=== PATIENT | female | born 1980 | race African-American/Black ===

== ENCOUNTER 2018-05-02 10:13 | Inpatient (IN) | payer BC, OTHER ==
[~2018-05-02] VITALS: Ht 165.1 cm; Wt 69.9 kg
--- NOTE | ~2018-05-02 | HC ---
[facility] [place] [address] CONSULTATION Name: MARE CRUZ Room #: 457-P ADM IN M.R.#: [id number] Admission: 05/02/18 Attend Phys: Nimo Olmos Discharge: Date of : 82 Report #: [id number] THIS REPORT FOR: //name// CC: LAVINIA physician/PCP Nimo Olmos DATE OF SERVICE: 05/02/2018 HISTORY OF PRESENT ILLNESS: This is a 38-year-old female patient who was admitted with somewhat of an unusual symptom. I talked to the patient to get the history. I talked to Dr. Perez, the Emergency Room physician, and talked to Dr. Olmos, the admitting physician. At this time, the patient gives history that she started having some tingling and numbness in the right upper extremity then it started involving her face and the tongue. Her speech became slurred. She believes she had some motor deficit that time. The symptoms subsequently resolved. It was not followed by any headache. She said she has a history of migraine, but the history I get is pretty unusual. She indicated that 10 years ago, she was having migraine headache. They were happening daily. She went to a neurologist and he did not think it was neurological. She went for allergy shots and took allergy shots for some time and that took care of her migraine. She never had any focal neurological symptoms. REVIEW OF SYSTEMS: Indicates that the patient is on control pills. She has been on control pills for a long time. She indicates she has a history of migraine. She indicates she saw her physician a few months ago and she was never diagnosed with hypertensive. Her blood pressure is running low, more than 140 here; it was a little higher earlier. She is not a known hypertensive. I carried out 14-point review of system in this patient. Rest of the 14-point review of system was mostly noncontributory. PAST MEDICAL HISTORY: Negative for TIA-like symptoms. FAMILY HISTORY: Unremarkable. PHYSICAL EXAMINATION: NEUROLOGIC: Indicates she is alert, responsive, oriented. Her speech, concentration, fund of knowledge, memory is at her baseline. Cranial nerve examination 2-12 looks unremarkable. She has unremarkable neuromuscular examination for any focality. No meningeal signs. There is no carotid bruit. CARDIAC: Appears unremarkable. RESPIRATORY: No respiratory difficulty, no rhonchi. VITAL SIGNS: Blood pressure 143/97, respirations 14, pulse is 68. LABORATORY DATA: Indicates a normal white count at 7.3. test is [facility] [address] [place] [address] CONSULTATION Name: MARE CRUZ Room #: 457-P [facility] IN .R.#: [id number] Admission: 05/02/18 Attend Phys: Nimo Olmos Discharge: Date of : 82 Report #: [id number]. LDL is 91, but HDL is 64. She had a CT angio, MRI of the brain and MRA. I had talked to the Emergency Room physician and asked him to exclude the and if that is excluded, they can do the CT angiogram. They did do a CT angiogram and that does not show any acute abnormality. IMPRESSION: Somewhat unstructured symptoms and unusual history as summarized above. 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 It may be transient ischemic attack, but the symptoms are pretty poorly defined. RECOMMENDATIONS: 1. Echocardiogram. 2. She really needs to talk to her OB about the control pills if she is having TIA-like symptoms and has a history of migraine. The risk of stroke is higher in this population. 3. Her blood pressure can be monitored and if it continued to stay high, then she needs to take measures to lower it. Thank you very much for this referral and all of it was discussed with the patient in great detail and we will follow the above plan. By: 1629 [id number] Cortes Angelo MD /nt
[2018-05-02 10:23] VITALS: BP 153/96
[2018-05-02] MEDS ORDERED: JUNEL FE 1.5-31 EACH PO (10:30)
[2018-05-02 10:51] LABS: ABSOLUTE NEUTROPHILS 4.1 thou/uL (1.4-8.2); BASOPHILS 0.4 % (0.0-2.0); EOSINOPHILS 0.9 % (0.0-3.0); LYMPHOCYTES 34.6 % (24.0-44.0); MCH 30.2 pg (26.0-34.0); MCHC 33.4 g/dL (28.0-37.0); MCV 90.2 fL (80.0-100.0); MONOCYTES 8.2 % (1.0-8.0); PLATELET COUNT 257 thou/uL (150-400); POLYS 55.9 % (36.0-66.0); RBC 4.33 mil/uL (4.20-5.00); RDW 14.9 % (10.5-14.5); WBC 7.3 thou/uL (4.0-11.0)
[2018-05-02 10:58] LABS: CALCIUM 9.5 mg/dL (8.5-10.1); CREATININE 0.9 mg/dL (0.6-1.0); POTASSIUM 3.6 mmol/L (3.5-5.1)
[2018-05-02 11:04] LABS: ALBUMIN 4.1 g/dL (3.4-5.0); TOTAL BILIRUBIN 0.2 mg/dL (<0.1-1.0); TOTAL PROTEIN 8.4 g/dL (6.4-8.2)
[2018-05-02 14:22] LABS: CHOLESTEROL 166 mg/dL (<200); HDL CHOLESTEROL 64 mg/dL (>40); LDL CHOLESTEROL 91 mg/dL (<100); TC:HDL 2.6 Ratio (Not establshd); TRIGLYCERIDE 56 mg/dL (<150); VLDL 11 mg/dL (<40)
[2018-05-02 14:58] VITALS: BP 149/86
[2018-05-02] MEDS ORDERED: ZYRTEC10 M5 PO (15:18)
[2018-05-02] MEDS ORDERED: WOMEN'S DAILY1 EAC2 PO (15:19)
[2018-05-02] MEDS ORDERED: NASACORT10.8 ML NASAL (15:20)
[2018-05-02] MEDS ORDERED: AAA-MED REC COMPLETE PO (15:37)
[2018-05-02 16:15] VITALS: BP 143/97
[2018-05-02 17:00] VITALS: BP 130/74
--- NOTE | 2018-05-02 18:37 | NUR ---
PT ARRIVED ON UNIT FROM ER LATE THIS AFTERNOON. ADMISSION HX, ASSESSMENT AND MED REC COMPLETE. ORDERS IMPLEMENTED. FAMILY AT BEDSIDE, PT RESTING COMFORTABLY.
[2018-05-02 19:16] VITALS: BP 146/88
[2018-05-03 03:28] VITALS: BP 141/83
[2018-05-03 07:38] VITALS: BP 146/78
--- NOTE | 2018-05-03 07:55 | NUR ---
PROGRESS PT DENIES PAIN, STATES THE NUMBNESS IS COMING AND GOING BUT IS NOT SEVERE THE ONSET. UP AD ZANDER . SLEPT MOST OF SHIFT. CONTINUE TO MONITOR.
--- NOTE | 2018-05-03 08:31 | EKG ---
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
[2018-05-03] MEDS ORDERED: NORVASC10 MG PO (10:08)
[2018-05-03] MEDS ORDERED: ADULT LOW DOSE81 MG PO (10:09)
[2018-05-03 10:13] VITALS: BP 146/78
--- NOTE | 2018-05-03 12:35 | 2DMMODE ---
[facility] [address] [place] [address] 2 D/M-MODE ECHOCARDIOGRAM Name: MARE CRUZ Room #: 457-P ADM IN M.R.#: [id number] Admission: 05/02/18 Attend Phys: Nimo Chavez Discharge: Date of : 82 Date of Service: 05/03/18 1234 Report #: [id number] THIS REPORT FOR: //name// APPROVED REPORT Study performed: 05/03/2018 11:30:22 EXAM: Comprehensive 2D, Doppler, and color-flow Echocardiogram Patient Location: Echo lab Room #: [facility] Status: routine BSA: 1.77 HR: 66 bpm BP: 146/98 mmHg Rhythm: NSR Other Information Study Quality: Good Indications CVA/TIA Echo Enhancing Agent Indication: Rule out Shunt Agent(s) / Amount(s) Used: Agitated Saline 7 cc 2D Dimensions RVDd: 35.14 mm IVSd: 11.38 (7-11mm) LVOT Diam: 19.07 (18-24mm) LVDd: 45.46 mm PWd: 11.17 (7-11mm) Ascending Ao: 28.97 (22-36mm) LVDs: 27.64 (25-40mm) Aortic Root: 24.06 mm IVC: 10.00 mm Volumes Left Atrial Volume (Systole) Single Plane 4CH: 25.44 mL Single Plane 2CH: 70.56 mL LA ESV Index: 28.00 mL/m2 Aortic Valve AoV Peak Stanislav.: 1.69 m/s AO Peak Gr.: 11.39 mmHg LVOT Max P.52 mmHg LVOT Max V: 1.46 m/s LIANNE Vmax: 2.47 cm2 AI Vmax: 4.51 m/s [facility] [place] [address] 2 D/M-MODE ECHOCARDIOGRAM Name: CRUZMARE Room #: 457-P [facility] IN .R.#: [id number] Admission: 05/02/18 Attend Phys: Nimo Chavez Discharge: Date of : 82 Date of Service: 05/03/18 1234 Report #: [id number] AI Sandoval: 1.75 m/s2 AI PHT: 745.07 ms Mitral Valve E/A Ratio: 1.4 MV Decel. Time: 213.60 ms MV E Max Stanislav.: 0.99 m/s MV A Stanislav.: 0.73 m/s MV PHT: 61.95 ms IVRT: 96.89 ms Pulmonary Valve PV Peak Stanislav.: 0.96 m/s PV Peak Gr.: 3.69 mmHg Pulmonary Vein P Vein S: 0.71 m/s P Vein A: 0.23 m/s P Vein D: 0.64 m/s P Vein A Dur.: 138.4 msec P Vein S/D Ratio: 1.11 Left Ventricle The left ventricle is normal size. There is normal LV segmental wall motion. There is normal left ventricular wall thickness. Left ventricular systolic function is normal. The left ventricular ejection fraction is within the normal range. LVEF is 60-65%. The left ventricular diastolic function is normal. Right Ventricle The right ventricle is normal size. The right ventricular systolic function is normal. Atria The left atrium size is normal. Interatrial septum is intact without evidence of ASD or PFO. The right atrium size is normal. Aortic Valve The aortic valve is normal in structure. Mild aortic regurgitation. There is no aortic valvular stenosis. Mitral Valve The mitral valve is normal in structure. There is no mitral valve regurgitation noted. No evidence of mitral valve stenosis. Tricuspid Valve The tricuspid valve is normal in structure. There is no tricuspid valve regurgitation noted. [facility] [address] [place] [address] 2 D/M-MODE ECHOCARDIOGRAM Name: MARE CRUZ Room #: 457-P [facility] IN .R.#: [id number] Admission: 05/02/18 Attend Phys: Nimo Chavez Discharge: Date of : 82 Date of Service: 05/03/18 1234 Report #: [id number] Pulmonic Valve The pulmonary valve is normal in structure. There is no pulmonic valvular regurgitation. Great Vessels The aortic root is normal in size. IVC is normal in size and collapses >50% with inspiration. Pericardium There is no pericardial effusion. <Conclusion> The left ventricle is normal size. LVEF is 60-65%. Interatrial septum is intact without evidence of ASD or PFO. The aortic valve is normal in structure. Mild aortic regurgitation. The mitral valve is normal in structure. The tricuspid valve is normal in structure. The pulmonary valve is normal in structure. There is no pericardial effusion. <ELECTRONICALLY SIGNED> By: Ray Honeycutt MD 05/03/18 1234 1234 1234 Ray Honeycutt MD /INF
[2018-05-03 14:52] LABS: TSH 1.203 uIU/mL (0.358-3.740)
--- NOTE | 2018-05-03 15:23 | NUR ---
ASSUMED PT CARE AT 0645. PT WAS A/O X4 WITH NO ISSUES OR CONCERNS. DC PTS IV AND HELPED PT DC FROM HOSPITAL
== END 2018-05-03 15:30 | disposition home or self-care (01) | DRG 103 ==
LOC: ER 10:13 → 4W 13:08 → EROBS 13:08 → 4W 16:16 → ENTRNSPT 05-03 14:26 → EDTRNSPTSTS 05-03 14:29 → 4W 05-03 15:30
PROVIDERS: Emergency Medicine; Psychiatry & Neurology Neuromuscular Medicine; ADMIT Hospitalist
DX: G43.409 Hemiplegic migraine, not intractable, without status migrainosus (principal); I10 Essential (primary) hypertension; Z87.891 Personal history of nicotine dependence; Z82.3 Family history of stroke; Z82.49 Family history of ischemic heart disease and other diseases of the circulatory system
CPT/HCPCS: 10040